=== PATIENT | male | born 1995 | race Two or more races ===

== ENCOUNTER 2019-07-09 15:37 | Emergency (ER) | payer SELFPAY ==
[~2019-07-09] VITALS: Ht 182.9 cm; Wt 136.1 kg
[2019-07-09] MEDS ORDERED: SODIUM BICARBONATE 8.4% INJ 50ML SYRINGE ONE (15:44)
[2019-07-09] MEDS ORDERED: EPINEPHrine HCL 1 MG/10 ML SYRG ONE (15:48)
== END 2019-07-09 17:58 | disposition expired ==
LOC: ER 15:37
DX: I46.9 Cardiac arrest, cause unspecified (principal)
CPT/HCPCS: 31500; 92950; 99285; J0171